=== PATIENT | male | born 1950 | race Caucasian/White ===

== ENCOUNTER → 2016-09-05 | Outpatient (CLI) | payer MEDICARE ==
[~2016-09-05] MED LIST: ASPIRIN ADULT L81 M2 PO; ATORVASTATIN CA40 M1 PO; OMEPRAZOLE D/R20 MG PO; PRILOSEC20 M2 PO; PROAIR HFA8.5 GM INH; VITAMIN D5000 IU PO; ZOCOR40 MG PO
[2016-09-05 10:40] LABS: BASO % 0.3 % (0.0-1.0); EOS # 0.4 10*3/uL (0.0-0.4); EOS % 5.2 % (1.0-4.0); HEMATOCRIT 34.9 % (42.0-52.0); HEMOGLOBIN 11.6 g/dl (14.0-18.0); LYMPH # 1.1 10*3/uL (1.3-4.4); MEAN CELL VOLUME 91.8 fl (80.0-94.0); MEAN CORPUSCULAR HGB 30.5 pg (27.0-31.0); MEAN CORPUSCULAR HGB CONC 33.2 g/dl (33.0-37.0); MEAN PLATELET VOLUME 9.6 fl (9.6-12.3); MONO # 0.9 10*3/uL (0.1-1.0); MONO % 11.1 % (3.0-9.0); NEUT # 5.5 10*3/uL (2.3-7.9); PLATELET COUNT AUTOMATED 195 10*3/uL (130-400); RED CELL DISTRI WIDTH 12.7 % (0-14.5); WHITE BLOOD COUNT 7.9 10*3/uL (4.8-10.8)
[2016-09-05 10:48] LABS: BUN 21 mg/dl (7-24); EST GLOM FILT AFRICAN AMERICAN > 60 ml/min
== END | disposition home or self-care (01) ==
LOC: LAB 10:01
PROVIDERS: Internal Medicine Hematology & Oncology
DX: C15.5 Malignant neoplasm of lower third of esophagus (principal)

== ENCOUNTER → 2016-10-04 | Outpatient (CLI) | payer MEDICARE ==
[2016-10-04 14:20] LABS: BASO % 0.6 % (0.0-1.0); EOS # 0.1 10*3/uL (0.0-0.4); EOS % 1.7 % (1.0-4.0); HEMATOCRIT 29.5 % (42.0-52.0); HEMOGLOBIN 9.9 g/dl (14.0-18.0); LYMPH # 1.1 10*3/uL (1.3-4.4); LYMPH % 21.2 % (27.0-41.0); MEAN CELL VOLUME 93.4 fl (80.0-94.0); MEAN CORPUSCULAR HGB 31.3 pg (27.0-31.0); MEAN CORPUSCULAR HGB CONC 33.6 g/dl (33.0-37.0); MEAN PLATELET VOLUME 10.4 fl (9.6-12.3); MONO # 0.7 10*3/uL (0.1-1.0); MONO % 13.4 % (3.0-9.0); NEUT # 3.4 10*3/uL (2.3-7.9); NEUT % 62.9 % (47.0-73.0); PLATELET COUNT AUTOMATED 76 10*3/uL (130-400); RED BLOOD COUNT 3.16 10*6/uL (4.50-5.90); RED CELL DISTRI WIDTH 14.8 % (0-14.5); WHITE BLOOD COUNT 5.4 10*3/uL (4.8-10.8)
[2016-10-04 14:33] LABS: BUN 21 mg/dl (7-24); EST GLOM FILT AFRICAN AMERICAN > 60 ml/min
== END | disposition home or self-care (01) ==
LOC: LAB 13:45
PROVIDERS: Internal Medicine Hematology & Oncology
DX: C15.5 Malignant neoplasm of lower third of esophagus (principal)

== ENCOUNTER → 2016-10-18 | Outpatient (CLI) | payer MEDICARE ==
[2016-10-18 16:46] LABS: BASO % 0.5 % (0.0-1.0); EOS % 0.5 % (1.0-4.0); HEMATOCRIT 28.1 % (42.0-52.0); HEMOGLOBIN 9.4 g/dl (14.0-18.0); LYMPH # 0.9 10*3/uL (1.3-4.4); LYMPH % 10.7 % (27.0-41.0); MEAN CELL VOLUME 96.2 fl (80.0-94.0); MEAN CORPUSCULAR HGB 32.2 pg (27.0-31.0); MEAN CORPUSCULAR HGB CONC 33.5 g/dl (33.0-37.0); MEAN PLATELET VOLUME 10.1 fl (9.6-12.3); MONO # 1.3 10*3/uL (0.1-1.0); MONO % 14.5 % (3.0-9.0); NEUT # 6.5 10*3/uL (2.3-7.9); NEUT % 73.5 % (47.0-73.0); PLATELET COUNT AUTOMATED 82 10*3/uL (130-400); RED BLOOD COUNT 2.92 10*6/uL (4.50-5.90); RED CELL DISTRI WIDTH 18.9 % (0-14.5); WHITE BLOOD COUNT 8.8 10*3/uL (4.8-10.8)
[2016-10-18 17:21] LABS: BUN 14 mg/dl (7-24); EST GLOM FILT AFRICAN AMERICAN > 60 ml/min
== END | disposition home or self-care (01) ==
LOC: LAB 16:12
PROVIDERS: Internal Medicine Hematology & Oncology
DX: C15.5 Malignant neoplasm of lower third of esophagus (principal)

== ENCOUNTER → 2016-12-13 | Outpatient (CLI) | payer MEDICARE ==
[2016-12-13 21:41] LABS: HEMOGLOBIN 8.7 g/dl (14.0-18.0); MEAN CELL VOLUME 104.4 fl (80.0-94.0); MEAN CORPUSCULAR HGB 34.9 pg (27.0-31.0); MEAN CORPUSCULAR HGB CONC 33.5 g/dl (33.0-37.0); MEAN PLATELET VOLUME 10.3 fl (9.6-12.3); PLATELET COUNT AUTOMATED 47 10*3/uL (130-400); RED BLOOD COUNT 2.49 10*6/uL (4.50-5.90); RED CELL DISTRI WIDTH 17.8 % (0-14.5); WHITE BLOOD COUNT 4.6 10*3/uL (4.8-10.8)
[2016-12-13 21:52] LABS: BUN 22 mg/dl (7-24); EST GLOM FILT AFRICAN AMERICAN > 60 ml/min
[2016-12-13 22:00] LABS: BURR CELLS FEW; EOSINOPHILS 1 % (1-4); NEUTROPHIL # 2.5 10*3/uL (2.3-7.9); NEUTROPHILS 55 % (47-73); PLATELET SUFFICIENCY LOW (NORMAL); TOTAL CELLS COUNTED 100 #CELLS
[2016-12-13 22:01] LABS: OVALOCYTES FEW; ROULEAUX SLIGHT
== END | disposition home or self-care (01) ==
LOC: LAB 20:49
PROVIDERS: Internal Medicine Hematology & Oncology
DX: C15.5 Malignant neoplasm of lower third of esophagus (principal)

== ENCOUNTER → 2017-04-11 | Outpatient (CLI) | payer MEDICARE ==
[2017-04-11 11:19] LABS: HEMATOCRIT 29.5 % (42.0-52.0); HEMOGLOBIN 9.9 g/dl (14.0-18.0); MEAN CELL VOLUME 111.3 fl (80.0-94.0); MEAN CORPUSCULAR HGB 37.4 pg (27.0-31.0); MEAN CORPUSCULAR HGB CONC 33.6 g/dl (33.0-37.0); MEAN PLATELET VOLUME 9.7 fl (9.6-12.3); PLATELET COUNT AUTOMATED 71 10*3/uL (130-400); RED BLOOD COUNT 2.65 10*6/uL (4.50-5.90); RED CELL DISTRI WIDTH 15.8 % (0-14.5); WHITE BLOOD COUNT 4.7 10*3/uL (4.8-10.8)
[2017-04-11 11:26] LABS: BUN 18 mg/dl (7-24); CREATININE 1.03 mg/dL (0.70-1.30)
[2017-04-11 11:44] LABS: PLATELET SUFFICIENCY LOW (NORMAL); TOTAL CELLS COUNTED 100 #CELLS
[2017-04-11 11:45] LABS: POLYCHROMASIA SLIGHT
== END | disposition home or self-care (01) ==
LOC: LAB 10:41
PROVIDERS: Internal Medicine Hematology & Oncology
DX: C15.5 Malignant neoplasm of lower third of esophagus (principal)

== ENCOUNTER → 2017-04-25 | Outpatient (CLI) | payer MEDICARE ==
[2017-04-25 11:20] LABS: HEMATOCRIT 32.4 % (42.0-52.0); HEMOGLOBIN 10.8 g/dl (14.0-18.0); MEAN CELL VOLUME 113.3 fl (80.0-94.0); MEAN CORPUSCULAR HGB 37.8 pg (27.0-31.0); MEAN CORPUSCULAR HGB CONC 33.3 g/dl (33.0-37.0); MEAN PLATELET VOLUME 10.3 fl (9.6-12.3); PLATELET COUNT AUTOMATED 74 10*3/uL (130-400); RED BLOOD COUNT 2.86 10*6/uL (4.50-5.90); WHITE BLOOD COUNT 6.3 10*3/uL (4.8-10.8)
[2017-04-25 11:40] LABS: ATYPICAL LYMPHS 1 % (0-0); BASOPHILS 2 % (0-1); PLATELET SUFFICIENCY LOW (NORMAL); TOTAL CELLS COUNTED 100 #CELLS
[2017-04-25 11:46] LABS: BUN 19 mg/dl (7-24); CREATININE 1.08 mg/dL (0.70-1.30)
== END | disposition home or self-care (01) ==
LOC: LAB 11:03
PROVIDERS: Internal Medicine Hematology & Oncology
DX: C15.5 Malignant neoplasm of lower third of esophagus (principal)

== ENCOUNTER → 2017-05-09 | Outpatient (CLI) | payer MEDICARE ==
[2017-05-09 10:44] LABS: HEMOGLOBIN 10.7 g/dl (14.0-18.0); MEAN CELL VOLUME 113.9 fl (80.0-94.0); MEAN CORPUSCULAR HGB 38.1 pg (27.0-31.0); MEAN CORPUSCULAR HGB CONC 33.4 g/dl (33.0-37.0); MEAN PLATELET VOLUME 9.8 fl (9.6-12.3); PLATELET COUNT AUTOMATED 62 10*3/uL (130-400); RED BLOOD COUNT 2.81 10*6/uL (4.50-5.90); RED CELL DISTRI WIDTH 14.2 % (0-14.5); WHITE BLOOD COUNT 4.4 10*3/uL (4.8-10.8)
[2017-05-09 11:05] LABS: BUN 15 mg/dl (7-24); CREATININE 1.26 mg/dL (0.70-1.30)
[2017-05-09 11:09] LABS: PLATELET SUFFICIENCY LOW (NORMAL); TOTAL CELLS COUNTED 100 #CELLS
== END | disposition home or self-care (01) ==
LOC: LAB 10:18
PROVIDERS: Internal Medicine Hematology & Oncology
DX: C15.5 Malignant neoplasm of lower third of esophagus (principal)

== ENCOUNTER → 2017-05-23 | Outpatient (CLI) | payer MEDICARE ==
[2017-05-23 11:32] LABS: HEMATOCRIT 29.6 % (42.0-52.0); MEAN CORPUSCULAR HGB 38.2 pg (27.0-31.0); MEAN CORPUSCULAR HGB CONC 33.8 g/dl (33.0-37.0); MEAN PLATELET VOLUME 10.5 fl (9.6-12.3); PLATELET COUNT AUTOMATED 60 10*3/uL (130-400); RED BLOOD COUNT 2.62 10*6/uL (4.50-5.90); RED CELL DISTRI WIDTH 14.4 % (0-14.5); WHITE BLOOD COUNT 4.6 10*3/uL (4.8-10.8)
[2017-05-23 11:42] LABS: BUN 19 mg/dl (7-24)
[2017-05-23 13:10] LABS: PLATELET SUFFICIENCY LOW (NORMAL); TOTAL CELLS COUNTED 100 #CELLS
== END | disposition home or self-care (01) ==
LOC: LAB 10:49
PROVIDERS: Internal Medicine Hematology & Oncology
DX: C15.5 Malignant neoplasm of lower third of esophagus (principal)

== ENCOUNTER → 2017-06-05 | Outpatient (CLI) | payer MEDICARE ==
[2017-06-05 10:25] LABS: HEMATOCRIT 29.3 % (42.0-52.0); MEAN CELL VOLUME 111.8 fl (80.0-94.0); MEAN CORPUSCULAR HGB 38.2 pg (27.0-31.0); MEAN CORPUSCULAR HGB CONC 34.1 g/dl (33.0-37.0); MEAN PLATELET VOLUME 9.5 fl (9.6-12.3); PLATELET COUNT AUTOMATED 71 10*3/uL (130-400); RED BLOOD COUNT 2.62 10*6/uL (4.50-5.90); RED CELL DISTRI WIDTH 14.3 % (0-14.5); WHITE BLOOD COUNT 5.2 10*3/uL (4.8-10.8)
[2017-06-05 10:44] LABS: TOTAL CELLS COUNTED 100 #CELLS
[2017-06-05 10:45] LABS: PLATELET SUFFICIENCY LOW (NORMAL); ROULEAUX MODERATE; SCHISTOCYTES FEW
[2017-06-05 10:50] LABS: BUN 17 mg/dl (7-24); CREATININE 1.22 mg/dL (0.70-1.30)
== END | disposition home or self-care (01) ==
LOC: LAB 10:04
PROVIDERS: Internal Medicine Hematology & Oncology
DX: C15.5 Malignant neoplasm of lower third of esophagus (principal)

== ENCOUNTER → 2017-06-19 | Outpatient (CLI) | payer MEDICARE ==
[2017-06-19 16:21] LABS: HEMATOCRIT 30.8 % (42.0-52.0); HEMOGLOBIN 10.5 g/dl (14.0-18.0); MEAN CELL VOLUME 113.2 fl (80.0-94.0); MEAN CORPUSCULAR HGB 38.6 pg (27.0-31.0); MEAN CORPUSCULAR HGB CONC 34.1 g/dl (33.0-37.0); MEAN PLATELET VOLUME 9.9 fl (9.6-12.3); PLATELET COUNT AUTOMATED 70 10*3/uL (130-400); RED BLOOD COUNT 2.72 10*6/uL (4.50-5.90); RED CELL DISTRI WIDTH 14.6 % (0-14.5); WHITE BLOOD COUNT 4.8 10*3/uL (4.8-10.8)
[2017-06-19 16:35] LABS: CREATININE 1.56 mg/dL (0.70-1.30)
[2017-06-19 16:55] LABS: BASOPHILS 1 % (0-1); TOTAL CELLS COUNTED 100 #CELLS
[2017-06-19 16:56] LABS: ROULEAUX SLIGHT
[2017-06-19 16:57] LABS: PLATELET SUFFICIENCY LOW (NORMAL)
== END | disposition home or self-care (01) ==
LOC: LAB 16:04
PROVIDERS: Internal Medicine Hematology & Oncology
DX: C15.5 Malignant neoplasm of lower third of esophagus (principal)

== ENCOUNTER → 2017-07-03 | Outpatient (CLI) | payer MEDICARE ==
[2017-07-03 11:16] LABS: BUN 14 mg/dl (7-24)
== END | disposition home or self-care (01) ==
LOC: LAB 10:34
PROVIDERS: Internal Medicine Hematology & Oncology
DX: C15.5 Malignant neoplasm of lower third of esophagus (principal)

== ENCOUNTER → 2017-07-17 | Outpatient (CLI) | payer MEDICARE ==
[2017-07-17 18:01] LABS: HEMATOCRIT 29.1 % (42.0-52.0); HEMOGLOBIN 9.9 g/dl (14.0-18.0); MEAN CELL VOLUME 113.7 fl (80.0-94.0); MEAN CORPUSCULAR HGB 38.7 pg (27.0-31.0); MEAN PLATELET VOLUME 9.7 fl (9.6-12.3); PLATELET COUNT AUTOMATED 65 10*3/uL (130-400); RED BLOOD COUNT 2.56 10*6/uL (4.50-5.90); RED CELL DISTRI WIDTH 14.9 % (0-14.5); WHITE BLOOD COUNT 6.5 10*3/uL (4.8-10.8)
[2017-07-17 18:12] LABS: BUN 20 mg/dl (7-24); CREATININE 1.31 mg/dL (0.70-1.30)
[2017-07-17 18:22] LABS: PLATELET SUFFICIENCY LOW (NORMAL); TOTAL CELLS COUNTED 100 #CELLS
== END | disposition home or self-care (01) ==
LOC: LAB 17:39
PROVIDERS: Internal Medicine Hematology & Oncology
DX: C15.5 Malignant neoplasm of lower third of esophagus (principal)

== ENCOUNTER → 2017-07-23 | Outpatient (CLI) | payer MEDICARE | END | disposition home or self-care (01) | LOC: RAD 07:44 | DX: C15.9 Malignant neoplasm of esophagus, unspecified (principal); R13.10 Dysphagia, unspecified ==

== ENCOUNTER → 2017-07-31 | Outpatient (CLI) | payer MEDICARE ==
[2017-07-31 12:25] LABS: BUN 25 mg/dl (7-24); CREATININE 1.38 mg/dL (0.70-1.30)
[2017-07-31 12:30] LABS: HEMOGLOBIN 10.7 g/dl (14.0-18.0); MEAN CELL VOLUME 113.5 fl (80.0-94.0); MEAN CORPUSCULAR HGB 37.9 pg (27.0-31.0); MEAN CORPUSCULAR HGB CONC 33.4 g/dl (33.0-37.0); MEAN PLATELET VOLUME 9.7 fl (9.6-12.3); PLATELET COUNT AUTOMATED 103 10*3/uL (130-400); RED BLOOD COUNT 2.82 10*6/uL (4.50-5.90); RED CELL DISTRI WIDTH 14.8 % (0-14.5); WHITE BLOOD COUNT 6.4 10*3/uL (4.8-10.8)
[2017-07-31 12:54] LABS: BASOPHILS 1 % (0-1); PLATELET SUFFICIENCY LOW (NORMAL); TOTAL CELLS COUNTED 100 #CELLS
== END | disposition home or self-care (01) ==
LOC: LAB 11:33
PROVIDERS: Internal Medicine Hematology & Oncology
DX: C15.5 Malignant neoplasm of lower third of esophagus (principal)

== ENCOUNTER → 2017-08-14 | Outpatient (CLI) | payer MEDICARE ==
[2017-08-14 10:39] LABS: HEMATOCRIT 30.4 % (42.0-52.0); HEMOGLOBIN 10.3 g/dl (14.0-18.0); MEAN CELL VOLUME 112.2 fl (80.0-94.0); MEAN CORPUSCULAR HGB CONC 33.9 g/dl (33.0-37.0); PLATELET COUNT AUTOMATED 82 10*3/uL (130-400); RED BLOOD COUNT 2.71 10*6/uL (4.50-5.90); RED CELL DISTRI WIDTH 14.9 % (0-14.5); WHITE BLOOD COUNT 5.1 10*3/uL (4.8-10.8)
[2017-08-14 10:52] LABS: CREATININE 1.44 mg/dL (0.70-1.30)
[2017-08-14 11:07] LABS: PLATELET SUFFICIENCY LOW (NORMAL); TOTAL CELLS COUNTED 100 #CELLS
== END | disposition home or self-care (01) ==
LOC: LAB 10:09
PROVIDERS: Internal Medicine Hematology & Oncology
DX: C15.5 Malignant neoplasm of lower third of esophagus (principal)

== ENCOUNTER → 2017-08-28 | Outpatient (CLI) | payer MEDICARE ==
[2017-08-28 10:51] LABS: HEMATOCRIT 30.8 % (42.0-52.0); HEMOGLOBIN 10.1 g/dl (14.0-18.0); MEAN CELL VOLUME 114.9 fl (80.0-94.0); MEAN CORPUSCULAR HGB 37.7 pg (27.0-31.0); MEAN CORPUSCULAR HGB CONC 32.8 g/dl (33.0-37.0); MEAN PLATELET VOLUME 9.9 fl (9.6-12.3); PLATELET COUNT AUTOMATED 87 10*3/uL (130-400); RED BLOOD COUNT 2.68 10*6/uL (4.50-5.90); RED CELL DISTRI WIDTH 14.5 % (0-14.5); WHITE BLOOD COUNT 3.8 10*3/uL (4.8-10.8)
[2017-08-28 11:15] LABS: BASOPHILS 2 % (0-1); TOTAL CELLS COUNTED 100 #CELLS
[2017-08-28 11:16] LABS: PLATELET SUFFICIENCY LOW (NORMAL)
[2017-08-28 11:18] LABS: CREATININE 1.44 mg/dL (0.70-1.30)
== END | disposition home or self-care (01) ==
LOC: LAB 09:50
PROVIDERS: Internal Medicine Hematology & Oncology
DX: C15.5 Malignant neoplasm of lower third of esophagus (principal)

== ENCOUNTER → 2017-09-18 | Outpatient (CLI) | payer MEDICARE ==
[2017-09-18 19:40] LABS: HEMATOCRIT 29.1 % (42.0-52.0); HEMOGLOBIN 9.5 g/dl (14.0-18.0); MEAN CELL VOLUME 113.7 fl (80.0-94.0); MEAN CORPUSCULAR HGB 37.1 pg (27.0-31.0); MEAN CORPUSCULAR HGB CONC 32.6 g/dl (33.0-37.0); MEAN PLATELET VOLUME 9.2 fl (9.6-12.3); PLATELET COUNT AUTOMATED 96 10*3/uL (130-400); RED BLOOD COUNT 2.56 10*6/uL (4.50-5.90); WHITE BLOOD COUNT 4.5 10*3/uL (4.8-10.8)
[2017-09-18 20:07] LABS: CREATININE 1.62 mg/dL (0.70-1.30)
[2017-09-18 20:44] LABS: BASOPHILS 3 % (0-1); TOTAL CELLS COUNTED 100 #CELLS
[2017-09-18 20:46] LABS: PLATELET SUFFICIENCY LOW (NORMAL)
== END | disposition home or self-care (01) ==
LOC: LAB 19:21
PROVIDERS: Internal Medicine Hematology & Oncology
DX: C15.5 Malignant neoplasm of lower third of esophagus (principal)

== ENCOUNTER → 2017-10-02 | Outpatient (CLI) | payer MEDICARE ==
[2017-10-02 16:07] LABS: HEMATOCRIT 31.3 % (42.0-52.0); HEMOGLOBIN 10.5 g/dl (14.0-18.0); MEAN CELL VOLUME 111.4 fl (80.0-94.0); MEAN CORPUSCULAR HGB 37.4 pg (27.0-31.0); MEAN CORPUSCULAR HGB CONC 33.5 g/dl (33.0-37.0); MEAN PLATELET VOLUME 9.1 fl (9.6-12.3); PLATELET COUNT AUTOMATED 93 10*3/uL (130-400); RED BLOOD COUNT 2.81 10*6/uL (4.50-5.90)
[2017-10-02 16:19] LABS: CREATININE 1.65 mg/dL (0.70-1.30)
[2017-10-02 16:27] LABS: BASOPHILS 1 % (0-1); PLATELET SUFFICIENCY LOW (NORMAL); TOTAL CELLS COUNTED 100 #CELLS
== END | disposition home or self-care (01) ==
LOC: LAB 15:50
PROVIDERS: Internal Medicine Hematology & Oncology
DX: C15.5 Malignant neoplasm of lower third of esophagus (principal)

== ENCOUNTER → 2017-10-16 | Outpatient (CLI) | payer MEDICARE ==
[2017-10-16 12:27] LABS: HEMATOCRIT 31.5 % (42.0-52.0); HEMOGLOBIN 10.4 g/dl (14.0-18.0); MEAN CELL VOLUME 108.6 fl (80.0-94.0); MEAN CORPUSCULAR HGB 35.9 pg (27.0-31.0); MEAN PLATELET VOLUME 9.7 fl (9.6-12.3); PLATELET COUNT AUTOMATED 90 10*3/uL (130-400); RED CELL DISTRI WIDTH 13.7 % (0-14.5); WHITE BLOOD COUNT 5.7 10*3/uL (4.8-10.8)
[2017-10-16 12:47] LABS: CREATININE 1.49 mg/dL (0.70-1.30)
[2017-10-16 13:08] LABS: BASOPHILS 1 % (0-1); PLATELET SUFFICIENCY LOW (NORMAL); ROULEAUX MODERATE; TOTAL CELLS COUNTED 100 #CELLS
== END | disposition home or self-care (01) ==
LOC: LAB 11:57
PROVIDERS: Internal Medicine Hematology & Oncology
DX: C15.5 Malignant neoplasm of lower third of esophagus (principal)

== ENCOUNTER → 2017-10-30 | Outpatient (CLI) | payer MEDICARE ==
[2017-10-30 16:37] LABS: HEMATOCRIT 31.6 % (42.0-52.0); HEMOGLOBIN 10.1 g/dl (14.0-18.0); MEAN CELL VOLUME 111.3 fl (80.0-94.0); MEAN CORPUSCULAR HGB 35.6 pg (27.0-31.0); MEAN PLATELET VOLUME 11.5 fl (9.6-12.3); PLATELET COUNT AUTOMATED 97 10*3/uL (130-400); RED BLOOD COUNT 2.84 10*6/uL (4.50-5.90); RED CELL DISTRI WIDTH 14.5 % (0-14.5); WHITE BLOOD COUNT 5.8 10*3/uL (4.8-10.8)
[2017-10-30 16:49] LABS: CREATININE 1.74 mg/dL (0.70-1.30)
[2017-10-30 17:12] LABS: BASOPHILS 1 % (0-1); PLATELET SUFFICIENCY LOW (NORMAL); TOTAL CELLS COUNTED 100 #CELLS
== END ==
LOC: LAB 15:58
PROVIDERS: Internal Medicine Hematology & Oncology
DX: C15.5 Malignant neoplasm of lower third of esophagus (principal)

== ENCOUNTER → 2021-12-22 | Outpatient (CLI) | payer OTHER ==
[~2021-12-22] MED LIST changes: +NEURONTIN100 MG PO
== END | disposition home or self-care (01) ==
LOC: CARD 00:16
PROVIDERS: ATTEND Internal Medicine Cardiovascular Disease
DX: I45.10 Unspecified right bundle-branch block (principal); R07.9 Chest pain, unspecified

== ENCOUNTER → 2022-01-05 | Outpatient (CLI) | payer OTHER | END | disposition home or self-care (01) | LOC: CARD 08:30 | PROVIDERS: ATTEND Internal Medicine Cardiovascular Disease | DX: I08.0 Rheumatic disorders of both mitral and aortic valves (principal) ==

== ENCOUNTER → 2022-06-26 | Outpatient (CLI) | payer MEDICARE | END | disposition home or self-care (01) | LOC: LAB 15:02 | PROVIDERS: ATTEND Nurse Practitioner | DX: R19.7 Diarrhea, unspecified (principal) ==

== ENCOUNTER → 2023-06-29 | Outpatient (CLI) | payer MEDICARE | END | disposition home or self-care (01) | LOC: RESCLI 12:46 | PROVIDERS: ATTEND Internal Medicine | DX: K52.9 Noninfective gastroenteritis and colitis, unspecified (principal); M79.2 Neuralgia and neuritis, unspecified; K21.9 Gastro-esophageal reflux disease without esophagitis; Z79.899 Other long term (current) drug therapy; Z88.8 Allergy status to other drugs, medicaments and biological substances; Z98.890 Other specified postprocedural states ==

== ENCOUNTER → 2023-12-28 | Outpatient (CLI) | payer OTHER | END | disposition home or self-care (01) | LOC: RAD 14:12 | PROVIDERS: ATTEND Physician Assistant | DX: M47.816 Spondylosis without myelopathy or radiculopathy, lumbar region (principal); M43.8X5 Other specified deforming dorsopathies, thoracolumbar region; M16.12 Unilateral primary osteoarthritis, left hip; I70.0 Atherosclerosis of aorta; M51.36 Other intervertebral disc degeneration, lumbar region; M25.552 Pain in left hip ==